=== PATIENT | female | born 1970 | race Caucasian/White ===

== ENCOUNTER 2024-05-11 09:04 | Emergency (ER) | payer OTHER ==
[~2024-05-11] VITALS: Ht 154.9 cm; Wt 72.6 kg
[2024-05-11] MEDS ORDERED: LEVOTHYROXINE50 MCG PO (09:38)
[2024-05-11] MEDS ORDERED: PROGESTERONE100 MG (09:38)
[2024-05-11] MEDS ORDERED: ESTRACE42.5 GM TOP (09:38)
[2024-05-11] MEDS ORDERED: CEFDINIR300 MG PO (09:44)
[2024-05-11] MEDS: CEFTRIAXONE 1 GM VIAL IM ONE (10:02)
[2024-05-11] MEDS ORDERED: LIDOCAINE HCL 1% LOCAL INJ 20 ML VIAL ONE (10:05)
[2024-05-11 10:21] VITALS: PULSE 75; RESP 16; TEMP 98.4; O2SAT 98
== END 2024-05-11 10:21 | disposition home or self-care (01) ==
LOC: FSED 09:14
DX: R05.9 Cough, unspecified (principal); J01.90 Acute sinusitis, unspecified; E03.9 Hypothyroidism, unspecified
CPT/HCPCS: 96372; 99283; J0696; J2001